=== PATIENT | female | born 1990 | race Caucasian/White ===

== ENCOUNTER → 2018-05-02 19:10 | Observation (INO) ==
[2018-05-02 19:29] LABS: Bilirubin,Urine Negative (Negative); Blood,Urine Negative (Negative); Clarity,Urine Turbid (Clear); Color,Urine Dark Yellow (Yellow); Glucose,Urine (UA) Normal (Normal); Ketones,Urine Negative (Negative); Leukocyte Esterase,Urine Negative (Negative); Nitrite,Urine Negative (Negative); PH,Urine 7.5 pH Units (5.0-8.0); Protein,Urine 30 mg/dL (Neg-Trace); Specific Gravity,Urine 1.025 (1.010-1.025); Urobilinogen,Urine Normal (Normal)
[2018-05-02 19:32] LABS: Bacteria,Urine None Seen per hpf (None-Few); Hyaline Casts,Urine None Seen per lpf (None-Few); Squamous Epithelial Cell,Urine Many per lpf (None-Few); WBC,Urine 0-3 per hpf (0-3)
[2018-05-02 19:39] LABS: Amphetamine Screen,Urine Negative ng/mL (Cutoff=1000); Barbiturate Screen,Urine Negative ng/mL (Cutoff=200); Benzodiazepines Screen,Urine Negative ng/mL (Cutoff=200); Cannabinoid Screen,Urine Negative ng/mL (Cutoff = 50); Cocaine Screen,Urine Negative ng/mL (Cutoff= 300); Opiate Screen,Urine Negative ng/mL (Cutoff=300); Phencyclidine Screen,Urine Negative ng/mL (Cutoff=25)
--- NOTE | 2018-05-02 20:02 | OB/GYN Progress Note ---
Date of Encounter: 05/02/18 Time of Encounter: 19:56 - Assessment and Plan (1) Vaginal discharge during in third trimester Current Visit: Yes Status: Acute Pelvic examination with frothy yellowish discharge. No pooling Send vaginosis panel Urinalysis (2) 33 weeks gestation of Current Visit: Yes Status: Acute Cervix closed and thick No painful contractions, vaginal bleeding, normal movement Category 1 tracing Expect patient to be discharged home once labs return Scheduled followup tomorrow with Dr. Knutson Subjective - Subjective Principal diagnosis: labor evaluation Interval history: Patient is a who presents at 33 and 4 weeks with chief complaint of leakage of fluid. History of two prior sections. Patient states around 1330 today she had a small amount of watery clear "gurgling" of fluid leakage when she coughed. She has had a small amount of leakage with exertion. Denies sexual intercourse in the past 48 hours. Denies vaginal bleeding. No burning with urination. Complains of some intermittent pelvic pressure, otherwise denies painful contractions.Normal movement. Went to [facility]. Nitrazine test was negative. Cervical examination was closed cervix and thick. She was advised to come here for monitoring as they do not have that in their ER. Denies fevers, chills, history of STI. Does have intermittent diaphragmatic pain for the past three days with laying down otherwise no chest pain or shortness of breath, nausea, or vomiting. Antepartum ROS: new complaints, loss of fluid, movement normal, no vaginal bleeding, no contractions Objective - Exam FHR: category 1 FHR comments: [id number] BPM reactive NST Auscultation: bilateral: normal Abdomen: Present: normal appearance, soft, gravid, other ( scar well healed, no tenderness). Absent: hernia, tenderness Uterus: Absent: tenderness Cervical dilation: closed Cervix effacement: thick Comments: Cardiac exam: RRR, S1 and S2, no murmur Speculum exam: frothy yellow discharge in vault, negative pooling, nitrazine negative at OSH - Labs Labs: Abnormal lab results Urine Clarity Turbid (Clear) A 05/02/18 19:00 Urine Protein 30 mg/dL (Neg-Trace) H 05/02/18 19:00
[2018-05-02 21:03] LABS: Candida DNA Not Detected (Not Detect); Gardnerella DNA DETECTED (Not Detect); Trichomonas DNA Not Detected (Not Detect)
== END | disposition home or self-care (01) ==
LOC: 1NENULAB
PROVIDERS: ADMIT Registered Nurse; ATTEND Registered Nurse

== ENCOUNTER 2018-05-16 12:55 | Observation (INO) ==
[2018-05-16 13:35] LABS: Bilirubin,Urine Small (Negative); Blood,Urine Negative (Negative); Color,Urine Dark Yellow (Yellow); Glucose,Urine (UA) Normal (Normal); Ketones,Urine 40 mg/dL (Negative); Leukocyte Esterase,Urine Small (Negative); Nitrite,Urine Positive (Negative); Protein,Urine 30 mg/dL (Neg-Trace); Specific Gravity,Urine 1.024 (1.010-1.025); Urobilinogen,Urine Normal (Normal)
[2018-05-16 13:37] LABS: Bacteria,Urine Few per hpf (None-Few); RBC,Urine 0-3 per hpf (0-3); Squamous Epithelial Cell,Urine Many per lpf (None-Few); WBC,Urine 15-30 per hpf (0-3)
[2018-05-16 13:40] LABS: Clarity,Urine Hazy (Clear)
[2018-05-16 13:52] LABS: Mucus,Urine Many (Few); Renal Epithelial Cells,Urine Few per hpf (None-Few); Transitional Epi Cells,Urine Few per hpf (None-Few)
[2018-05-16 13:53] LABS: Amphetamine Screen,Urine Negative ng/mL (Cutoff=1000); Barbiturate Screen,Urine Negative ng/mL (Cutoff=200); Benzodiazepines Screen,Urine Negative ng/mL (Cutoff=200); Cannabinoid Screen,Urine Negative ng/mL (Cutoff = 50); Cocaine Screen,Urine Negative ng/mL (Cutoff= 300); Opiate Screen,Urine Negative ng/mL (Cutoff=300); Phencyclidine Screen,Urine Negative ng/mL (Cutoff=25)
--- NOTE | 2018-05-16 14:35 | OB/GYN Progress Note ---
Date of Encounter: 05/16/18 Time of Encounter: 14:32 - Assessment and Plan (1) Decreased movement Current Visit: Yes Status: Acute NST reactive Qualifiers: Fetus number: single or unspecified fetus Trimester: third trimester Qualified Code(s): O36.8130 - Decreased movements, third trimester, not applicable or unspecified (2) 35 weeks gestation of Current Visit: Yes Status: Acute (3) Acute cystitis during in third trimester Current Visit: Yes Status: Acute Rx keflex. Pyelo precautions given. Discharge home with return precautions. Subjective - Subjective Interval history: 27 year-old presenting at 35w4d with c/o decreased movement. She reports she was ill with nausea, vomiting, and diarrhea yesterday and did not feel the baby move. Today she is feeling better but she has still not been able to feel the baby move. She reports her children were ill before her. No leaking, bleeding, or other complaints. This is complicated by 2 previous deliveries. Antepartum ROS: contractions (pt unsure if contractions), no loss of fluid, no vaginal bleeding, no movement normal Objective - Vital Signs Vital Signs: Intake and Output 05/15/18 05/16/18 05/16/18 23:59 07:59 15:59 Other: Weight 73.2 kg Patient Weight 05/16/18 23:59 Weight 73.2 kg - Exam FHR: category 1 FHR comments: 135 BPM reactive NST Abdomen: Present: soft, gravid Uterus: Absent: tenderness Cervical dilation: closed Cervix effacement: thick station: high - Labs Labs: Abnormal lab results Urine Clarity Hazy (Clear) A 05/16/18 13:11 Urine Protein 30 mg/dL (Neg-Trace) H 05/16/18 13:11 Urine Ketones 40 mg/dL (Negative) H 05/16/18 13:11 Urine Nitrite Positive (Negative) A 05/16/18 13:11 Urine Bilirubin Small (Negative) H 05/16/18 13:11 Ur Leukocyte Esterase Small (Negative) H 05/16/18 13:11 Urine Microscopic WBC 15-30 per hpf (0-3) H 05/16/18 13:11 Ur Squamous Epith Cells Many per lpf (None-Few) H 05/16/18 13:11 Urine Mucus Many (Few) H 05/16/18 13:11 Ur Culture Indicated? NO. (NO) A 05/16/18 13:11
== END 2018-05-16 14:50 | disposition home or self-care (01) ==
LOC: 1NENULAB
PROVIDERS: ADMIT Registered Nurse; ATTEND Registered Nurse

== ENCOUNTER 2018-05-28 17:42 | Inpatient (IN) ==
[2018-05-28 12:24] LABS: Amphetamine Screen,Urine Negative ng/mL (Cutoff=1000); Barbiturate Screen,Urine Negative ng/mL (Cutoff=200); Benzodiazepines Screen,Urine Negative ng/mL (Cutoff=200); Cannabinoid Screen,Urine Positive ng/mL (Cutoff = 50); Cocaine Screen,Urine Negative ng/mL (Cutoff= 300); Opiate Screen,Urine Negative ng/mL (Cutoff=300); Phencyclidine Screen,Urine Negative ng/mL (Cutoff=25)
[2018-05-28 14:21] LABS: Candida DNA Not Detected (Not Detect); Gardnerella DNA Not Detected (Not Detect); Trichomonas DNA Not Detected (Not Detect)
[~2018-05-28 17:42] MED LIST: CeFAZolin Premix DUPLEX 2,000 MG/50 ML BAG IVPB ONE; Famotidine 20 MG/2 ML VIAL IVP ONE; Metoclopramide 10 MG/2 ML VIAL IVP ONE; Oxytocin 20 units/ LR 1000 mL 20 UNIT/1,000 ML BAG IVC SCH; Ringers Solution, Lactated 1,000 ML IVC SCH
--- NOTE | 2018-05-28 17:59 | OB/GYN History & Physical ---
Date of Encounter: 05/28/18 Time of Encounter: 17:42 Assessment and Plan (1) 37 weeks gestation of Current visit: Yes Status: Acute Admitted for complaint of SROM yesterday. Patient arrived at 37 weeks 2 days today (2) NST (non-stress test) reactive Current visit: Yes Status: Acute FHR 135 bpm, moderate variability, +15x15 accels, no decels. Irregular contractions (3) Previous section Current visit: Yes Status: Acute Plan for repeat section due to SROM, 6-8 hours after last meal. (4) Spontaneous rupture of amniotic membranes Current visit: No Status: Acute Repeat section to be performed 6-8 hours after patient's last meal. History of Present Illness Chief complaint: SROM at 37w2d HPI: Ms. London is a 27 year old female at 37.2 weeks who presents with SROM yesterday at approximately 5 PM. Upon arrival, nitrazine to the perineum was negative, patient was 1 cm at that time. Patient reports positive movement and denies vaginal bleeding. Initial speculum exam revealed small amount of white vaginal discharge mixed with clear fluid. Fluid was visualized with patient cough. FERN sample was insufficient for viewing. Repeat FERN sample was repeated and found to be negative but due to physical exam on speculum exam, patient was kept for observation until Dr. Mccoy was able to evaluate her. Once Dr. Mccoy was able to evaluate patient with a speculum exam, he visualized fluid pooling in the speculum. At this time, it was decided to admit patient and move forward with a repeat section due to SROM. Patient had 2 prior sections. Blood Type A+ GBS neg HbSAG negative Rubella Immune Varicella Immune T. Pall Negative HIV Negative Past Med Surg Social Fam HX - Past Medical History Medical history: no medical history Additional medical history: KIDNEY STENT; adnoids and tonsilectomy Psychiatric history: no psych history - Past Surgical History Surgical History: , ureteral stent - Social History Smoking Status: Current every day smoker Packs per day: 3-5 cigs a day Smokeless Tobacco Status: No Alcohol use: none Drug use: marijuana Current living situation: Home - Independent Activity Level: Independent ambulation Recent Out of Country Travel Within the Last 8 Weeks: No Exposure or Possible Exposure to Illness During Travel: No - Family History Mother Living Status: Still Living Hx Family Cardiac Disorders: No Hx Family Respiratory Disorders: No Hx Family Cancer: Yes (cervical) Hx Family GI Disorders: No Hx Family Endocrine Disorder: No Hx Family Neuromuscular Disorders: No Hx Family Neurologic Disorders: No Hx Family HEENT Disorders: No Hx Family Autoimmune Disorders: No Maternal Grandmother Adopted: No Family Member Ethnicity: Non- Living Status: Still Living Hx Family Cardiac Disorders: No Hx Family Respiratory Disorders: No Hx Family Cancer: Yes (BREAST) Hx Family GI Disorders: No Hx Family Endocrine Disorder: No Hx Family Neuromuscular Disorders: No Hx Family Neurologic Disorders: No Hx Family HEENT Disorders: No Hx Family Autoimmune Disorders: No Obstetrical History - Pregnancies : 3 Para: 2 Term: 1 : 1 Ab's: 0 Livin Medications and Allergies No Known Home Drugs 05/28/18 [History] Allergy/AdvReac Type Severity Reaction Status Date / Time No Known Allergies Allergy Verified 05/16/18 13:18 Exam - Constitutional Constitutional: well developed, well nourished, no acute distress, average body habitus - Neck Neck exam: full ROM, normal inspection - Lungs Respiratory exam: CTAB - Cardiovascular Cardiovascular exam: RRR, +S1, +S2 - Breasts Breast: bilateral: normal - Abdomen Abdomen: Present: bowel sounds normal, gravid, non tender - Extremities Extremities exam: full ROM, normal capillary refill, normal inspection - Vulva Vulva: bilateral: normal - Vagina Vagina: Present: normal moisture - Cervix Dilation: 1 Effacement: 0 (Per RN exam) - Uterus Uterus exam: Present: normal size Results Abnormal lab results U Marijuana (THC) Screen Positive ng/mL (Cutoff = 50) H 05/28/18 11:51 All other labs normal. - VTE Reasons for not Prescribing Prophylaxis: Treatment not Indicated - Low risk for VTE
[2018-05-28 18:06] LABS: Basophils % 0.3 %; Eosinophils # 0.1 K/mcL (0.0-0.6); Eosinophils % 0.8 %; Hematocrit 30.2 % (35.3-44.9); Hemoglobin 9.9 g/dL (11.5-15.4); Immature Granulocytes % 0.7 % (0-4); Lymphocytes # 2.4 K/mcL (0.6-4.6); Lymphocytes % 23.1 %; Mean Corpuscular HGB Conc 32.8 g/dL (31.6-35.5); Mean Corpuscular Hemoglobin 28.6 pg (28.0-33.3); Mean Corpuscular Volume 87.3 fL (83.0-100.0); Mean Platelet Volume 9.3 fL (9.4-12.4); Monocytes # 0.6 K/mcL (0.0-1.3); Neutrophils # 7.1 K/mcL (1.6-8.9); Platelet Count 268 K/mcL (140-400); Red Blood Count 3.46 M/mcL (3.82-4.97); Red Cell Distribution Width 12.3 % (11.5-14.5); Segmented Neutrophils % 69.1 %
--- NOTE | 2018-05-28 18:29 | Anesthesia Evaluation PreOp ---
Date of Encounter: 05/28/18 Time of Encounter: 18:27 - Past History Cardiac History: Denies any Significant Hx Pulmonary History: Smoker (1/2 ppd), Pack/yr (6) FUSION JUNCTURE GRINDER History: Denies Any Significant HX Other Medical History: GERD Anesthesia History: No Prior Anesthetic Complications, Past Anesthesia (tonsil, ureteral stent, C/S x2), Problems (N/V) : Yes Test: Positive Alcohol Use: none Drug use: marijuana Medications and Allergies No Known Home Drugs 05/28/18 [History] Allergy/AdvReac Type Severity Reaction Status Date / Time No Known Allergies Allergy Verified 05/16/18 13:18 - Meds/Allergy Pre-op Review Medications Reviewed: Yes Allergies Reviewed: Yes Beta Blockers on Current Med List: No Anesthesia Results - Labs 05/28/18 17:44 Anesthesia Exam Height: 5'4" Weight: 76 kg NPO (# of Hours): 8 ate at noon Pain Scale: 0 Pain Scale Used: Numeric (1 - 10) - HEENT Pupil (Motor): Pupils equal Mallampati: II Teeth: Missing, Poor dentition Oral Opening: Greater than 3 - FUSION JUNCTURE GRINDER LOC: Oriented FUSION JUNCTURE GRINDER Motor: Normal RUE, Normal LUE, Normal RLE, Normal LLE, Normal Face FUSION JUNCTURE GRINDER Sensory: Normal: RUE, LUE, RLE, LLE, Face - Cardiac Rhythm: Regular Murmur: None - Pulmonary Breath Sounds: bilateral Clear Respiratory Effort: Symmetrical Anesthesia Assess/Plan ASA Score: 2 Level of consciousness: Cooperative Anesthetic Plan: Spinal (risks discussed questions answered, consented) Autologous Blood: No Monitoring Plan: Standard Monitors Recovery Plan: PACU
[2018-05-28] MEDS ORDERED: *HR* FentaNYL (PF) 100 MCG/2 ML VIAL IVP PRN (18:33)
[2018-05-28] MEDS ORDERED: *HR* Meperidine 25 MG/ML SYRINGE IVP PRN (18:33)
[2018-05-28] MEDS ORDERED: Acetaminophen IV 1,000 MG/100 ML INFUS..BTL IVPB ONE (18:33)
[2018-05-28] MEDS ORDERED: Ondansetron 4 MG/2 ML VIAL IVP PRN (18:33)
[2018-05-28] MEDS ORDERED: *HR* OxyCODONE Immed Rel 5 MG TABLET PO PRN (18:33)
[2018-05-28] MEDS ORDERED: *HR* Morphine Sulfate/PF 10 MG/10 ML AMPUL ONE (18:45)
[2018-05-28] MEDS ORDERED: Dexamethasone 4 MG/ML VIAL ONE (18:45)
[2018-05-28] MEDS ORDERED: Ondansetron 4 MG/2 ML VIAL ONE (18:45)
[2018-05-28] MEDS ORDERED: *HR* FentaNYL (PF) 100 MCG/2 ML VIAL ONE (18:45)
[2018-05-28] MEDS ORDERED: *HR* Oxytocin 10 UNIT/ML VIAL IM ONE (18:45)
[2018-05-28] MEDS ORDERED: Lidocaine -MPF 2% 5 ML VIAL ONE (18:50)
[2018-05-28] MEDS ORDERED: EPHEDrine 50 MG/ML VIAL ONE (20:54)
--- NOTE | 2018-05-28 21:02 | Anesthesia Procedures ---
Date of Encounter: 05/28/18 Time of Encounter: 21:00 Procedures: Anesthesia - Epidural/Spinal Patient ID/Chart reviewed: Yes Patient examined: Yes OB Eval: Gestational age: 37 OB Eval: : 3 OB Eval: Hx Para: 2 OB Eval: Dilated at (cm): 2 OB Eval: Contractions: Non-stressed pattern Consent Obtained: Yes Site Prep: Aseptic Technique, Sterile prep and drape, 0.5% Chlorhexidine/Alcohol Patient position: upright Interspace Used: L2-L3 Blood: No CSF: Yes Paresthesia: No Spinal Needle Gauge: 25 Spinal Dose: marcaine 12.5mg duramorph 0.2, fentanyl 10mcg Procedure: aseptic, lily well, effective Vitals + FHT's: 144/78 65 16 fht 133
--- NOTE | 2018-05-28 22:05 | OB/GYN Procedure Note ---
Section - Date of procedure: 05/28/18 Preop diagnosis: desires repeat , other (Premature rupture membranes at 37 weeks) Post-op diagnosis: same Procedure: section, repeat low transverse Surgeon: Kevin Mccoy Quantitated Blood Loss: 400 Was there an bankruptcy assistant present: No Tibco Developer: Vipul Antonio Anesthesia Type: Spinal Disposition: PACU - Infant (s) Infant A Delivery Date: 05/28/18 Delivery Time: 20:58 Presentation: vertex Gender: Female Gram Weight: 2.735 kg at 1 minute: 9 at 5 minutes: 9 Shoulder Dystocia: not encountered - Narrative Narrative: Patient's 27-year-old 3 para 2 female presents after rupture membranes last evening she presented today which time sterile speculum exam did show significant pulling without choanal cervix positive nitrazine have initially did not firm. She had eaten port we did observe patient for 6 hours at which time another sterile speculum exam revealed again definite leakage of fluid from the cervix and definite nitrazine and this time we did see ferning. We discussed with patient options decision was made to proceed with repeat section. She was aware operative risks and signed proper procedure. She had previously stated desire for tubal ligation however she with 2 this desire prior to surgery. Description procedure: Patient was taken operating room where scalp was used to make Pfannenstiel skin incision we did [place]: Took the incision down to the fascia which was nicked in the midline and fascial incision was extended bilaterally. Rectus muscles were divided in the midline fascial incision was extended superiorly and distally peritoneum was entered sharply and peritoneal incision was extended. Bladder flap was developed and lower uterine segment. Scalpel was used to make a transverse uterine incision which was bluntly extended bilaterally. Membranes were ruptured of clear fluid and was delivered from vertex presentation. Cord was clamped and cut and infant was taken to warmer for further resuscitative efforts. weight is 76 pounds with Apgars of 9 at 1 minute and 9 at 5 minutes. Placenta was delivered manually without difficulty and uterine cavity was massaged free of all residual tissue. Uterus was closed 0 Vicryl running lock stitch. Second imbricating layer was taken over the first to obtain hemostasis. Again irrigation was performed hemostasis was ensured. Fascia was closed 0 Vicryl running manner. Closed the fascia again irrigation was performed hemostasis was ensured. Skin edges reapproximated with 4-0 Vicryl. All sponge eminence counts are correct patient was taken recovery in good condition.
[2018-05-29] MEDS ORDERED: Simethicone 80 MG TAB.CHEW PO PRN (00:34)
[2018-05-29] MEDS ORDERED: Sennosides 8.6 MG TABLET PO PRN (00:34)
[2018-05-29] MEDS ORDERED: Metoclopramide 10 MG/2 ML VIAL IVP PRN (00:34)
[2018-05-29] MEDS ORDERED: Oxytocin 20 units/ LR 1000 mL 20 UNIT/1,000 ML BAG IVC SCH (00:34)
[2018-05-29] MEDS ORDERED: Ringers Solution, Lactated 1,000 ML IVC SCH (00:34)
[2018-05-29] MEDS ORDERED: Ondansetron 4 MG/2 ML VIAL IVP PRN (00:34)
--- NOTE | 2018-05-29 01:23 | Anesthesia Evaluation Post Op ---
Date of Encounter: 05/29/18 Time of Encounter: 01:22 - Lungs Lungs: Clear Ascult./Percussion - Airway Airway: Non-obstructed - Cardiovascular Regular Rate - Mental Status Mental Status: Alert & Oriented, Answers Appropriately - Pain Pain Scale: 2 Pain Scale used: Numeric (1 - 10) - Nausea Vomiting Nausea Vomiting: Not Present - Hydration Hydration: NPO Notes: 05/29/18 01:22 no anesthetic complications, to floor - Discharge PostOp Status: Transfer Patient to floor
[2018-05-29 07:15] LABS: Basophils % 0.1 %; Hematocrit 28.1 % (35.3-44.9); Hemoglobin 9.1 g/dL (11.5-15.4); Immature Granulocytes % 0.5 % (0-4); Lymphocytes # 1.6 K/mcL (0.6-4.6); Lymphocytes % 10.4 %; Mean Corpuscular HGB Conc 32.4 g/dL (31.6-35.5); Mean Corpuscular Hemoglobin 28.4 pg (28.0-33.3); Mean Corpuscular Volume 87.8 fL (83.0-100.0); Mean Platelet Volume 9.4 fL (9.4-12.4); Monocytes # 0.6 K/mcL (0.0-1.3); Monocytes % 4.2 %; Neutrophils # 12.8 K/mcL (1.6-8.9); Platelet Count 257 K/mcL (140-400); Red Cell Distribution Width 11.9 % (11.5-14.5); Segmented Neutrophils % 84.8 %
[2018-05-29] MEDS: *HR* OxyCODONE/APAP 5/325 TABLET PO PRN ×3 (08:40→20:42)
[2018-05-29] MEDS ORDERED: Prenatal Vit/FA 1 EACH TABLET PO SCH (09:00)
--- NOTE | 2018-05-29 09:15 | OB/GYN Progress Note ---
Date of Encounter: 05/29/18 Time of Encounter: 09:13 - Assessment and Plan (1) Status post repeat low transverse section Current Visit: Yes Status: Acute Meeting all day 1 milestones Continue routine pp care Anticipate discharge home tomorrow (2) anemia Current Visit: Yes Status: Acute Continue iron supplementation daily Subjective - Subjective Principal diagnosis: s/p RLTCS Interval history: Feeling well. Out of bed without dizziness. Some abdominal discomfort-using binder. Cramping minimal, using ibuprofen and Percocet. every 2- 3 hours. Some nipple soreness. Voiding without difficulty. Passing flatus, no BM yet. Tolerating regular diet. Patient reports: appetite normal, voiding normally, pain well controlled, ambulating normally : doing well, other ( issues - possible lip tie) Objective - Vital Signs Latest vital signs: Vital Signs Temp Pulse Resp BP Pulse Ox 05/29/18 07:57 97.8 F 50 16 122/62 98 05/29/18 03:05 67 16 122/76 05/29/18 02:25 97.6 F 66 16 121/79 98 05/29/18 01:00 97.3 F L 58 16 125/78 96 05/29/18 00:01 97.8 F 61 14 131/73 97 Intake and Output 05/28/18 05/29/18 05/29/18 23:59 07:59 15:59 Intake Total 1000 / 1000 0 / 0 Output Total 400 / 400 325 / 325 Balance 600 / 600 -325 / -325 Intake: Oral 0 / 0 Intake, Autotransfusion Amount 1000 / 1000 Output: Estimated Blood Loss 400 / 400 Catheter 325 / 325 - Exam Lungs: bilateral: normal Chest: Normal S1, Normal S2 Extremities: Present: normal, edema (pedal - non-pitting) Incision: Present: normal, dry, dressed Uterus: Present: normal, firm Fundal Height: 1 (below and midline) Comments: Breasts: Soft, nontender; nipples intact without erythema - Labs Labs: Laboratory Results - last 24 hr 05/28/18 05/28/18 05/28/18 11:51 13:00 17:44 WBC 10.3 RBC 3.46 L Hgb 9.9 L Hct 30.2 L MCV 87.3 MCH 28.6 MCHC 32.8 RDW 12.3 Plt Count 268 MPV 9.3 L Immature Gran % 0.7 Seg Neutrophils % 69.1 Lymphocytes % 23.1 Monocytes % 6.0 Eosinophils % 0.8 Basophils % 0.3 Neutrophils # 7.1 Lymphocytes # 2.4 Monocytes # 0.6 Eosinophils # 0.1 Basophils # 0.0 Urine Opiates Screen Negative Ur Barbiturates Screen Negative Ur Phencyclidine Scrn Negative Ur Amphetamines Screen Negative U Benzodiazepines Scrn Negative Urine Cocaine Screen Negative U Marijuana (THC) Screen Positive H Ur Drug Screen Interp See Below Maria Del Carmen species DNA Not Detected Gardnerella DNA Probe Not Detected Trichomonas DNA Probe Not Detected 05/29/18 06:55 WBC 15.1 H RBC 3.20 L Hgb 9.1 L Hct 28.1 L MCV 87.8 MCH 28.4 MCHC 32.4 RDW 11.9 Plt Count 257 MPV 9.4 Immature Gran % 0.5 Seg Neutrophils % 84.8 Lymphocytes % 10.4 Monocytes % 4.2 Eosinophils % 0.0 Basophils % 0.1 Neutrophils # 12.8 H Lymphocytes # 1.6 Monocytes # 0.6 Eosinophils # 0.0 Basophils # 0.0 Urine Opiates Screen Ur Barbiturates Screen Ur Phencyclidine Scrn Ur Amphetamines Screen U Benzodiazepines Scrn Urine Cocaine Screen U Marijuana (THC) Screen Ur Drug Screen Interp Maria Del Carmen species DNA Gardnerella DNA Probe Trichomonas DNA Probe
[2018-05-29] MEDS: Ibuprofen 600 MG TABLET PO PRN ×2 (12:02→18:20)
[2018-05-30] MEDS: *HR* OxyCODONE/APAP 5/325 TABLET PO PRN ×2 (02:19→07:38)
[2018-05-30] MEDS ORDERED: Lanolin 7 G OINT...G. TP PRN (02:47)
[2018-05-30] MEDS: Ibuprofen 600 MG TABLET PO PRN ×2 (05:41→11:29)
[2018-05-30 07:40] VITALS: BP 109/62
--- NOTE | 2018-05-30 09:38 | Discharge Summary ---
Date of Encounter: 05/30/18 Time of Encounter: 09:35 - Discharge Diagnosis (1) Breast feeding status of mother Priority: Secondary Status: Acute (2) anemia Priority: Secondary Status: Acute (3) Status post repeat low transverse section Priority: Primary Status: Acute Comments: Pt meeting post-op milestones. She desires discharge home today. - Discharge Medications Prescriptions: Ibuprofen [Motrin] 600 mg PO Q6HR PRN #30 tablet PRN Reason: Cramping OxyCODONE/APAP 5/325 [Percocet 5/325 MG] 1 each PO Q6HR PRN 7 Days #28 tablet PRN Reason: Moderate pain 4-6 Breast Pump [BREAST PUMP] 1 each .ROUTE AD #1 each Docusate [Colace] 100 mg PO BID #60 capsule Ferrous Sulfate 325 mg PO DAILY #30 tablet Home Medications: Breast Pump [BREAST PUMP] 1 each .ROUTE AD #1 each 05/30/18 [Rx] Docusate [Colace] 100 mg PO BID #60 capsule 05/30/18 [Rx] Ferrous Sulfate 325 mg PO DAILY #30 tablet 05/30/18 [Rx] Ibuprofen [Motrin] 600 mg PO Q6HR PRN #30 tablet 05/30/18 [Rx] Lanolin [Lansinoh] 1 appl TP TID PRN oint...g. 05/30/18 [Rx] OxyCODONE/APAP 5/325 [Percocet 5/325 MG] 1 each PO Q6HR PRN 7 Days #28 tablet 05/30/18 [Rx] Vit/FA 1 each PO DAILY tablet 05/30/18 [Rx] Simethicone [Gas-X] 80 mg PO TID PRN tab.chew 05/30/18 [Rx] Allergies/Adverse Reactions: Allergy/AdvReac Type Severity Reaction Status Date / Time No Known Allergies Allergy Verified 05/16/18 13:18 Data Procedures and tests throughout hospitalization: Laboratory Tests 05/28/18 05/28/18 05/28/18 11:51 13:00 17:44 WBC 10.3 RBC 3.46 L Hgb 9.9 L Hct 30.2 L MCV 87.3 MCH 28.6 MCHC 32.8 RDW 12.3 Plt Count 268 MPV 9.3 L Immature Gran % 0.7 Seg Neutrophils % 69.1 Lymphocytes % 23.1 Monocytes % 6.0 Eosinophils % 0.8 Basophils % 0.3 Neutrophils # 7.1 Lymphocytes # 2.4 Monocytes # 0.6 Eosinophils # 0.1 Basophils # 0.0 Urine Opiates Screen Negative Ur Barbiturates Screen Negative Ur Phencyclidine Scrn Negative Ur Amphetamines Screen Negative U Benzodiazepines Scrn Negative Urine Cocaine Screen Negative U Marijuana (THC) Screen Positive H Ur Drug Screen Interp See Below Maria Del Carmen species DNA Not Detected Gardnerella DNA Probe Not Detected Trichomonas DNA Probe Not Detected 05/29/18 06:55 WBC 15.1 H RBC 3.20 L Hgb 9.1 L Hct 28.1 L MCV 87.8 MCH 28.4 MCHC 32.4 RDW 11.9 Plt Count 257 MPV 9.4 Immature Gran % 0.5 Seg Neutrophils % 84.8 Lymphocytes % 10.4 Monocytes % 4.2 Eosinophils % 0.0 Basophils % 0.1 Neutrophils # 12.8 H Lymphocytes # 1.6 Monocytes # 0.6 Eosinophils # 0.0 Basophils # 0.0 Urine Opiates Screen Ur Barbiturates Screen Ur Phencyclidine Scrn Ur Amphetamines Screen U Benzodiazepines Scrn Urine Cocaine Screen U Marijuana (THC) Screen Ur Drug Screen Interp Maria Del Carmen species DNA Gardnerella DNA Probe Trichomonas DNA Probe Date of admission: 05/28/18 17:42 Primary care physician: PCP NONE Discharging clinician: Judi Dior Anticipated date of discharge: 05/30/18 - Patient Status Disposition: Home, Self-Care Condition: Good Functional capacity at discharge: independent ambulation Overall status at discharge: patient is progressing back to baseline - Discharge Instructions Follow Up With: NONE,PCP [Primary Care Provider] - Kevin Mccoy MD [Partnered Physician] - - Diet and Activity Activity: increase activity as tolerated Diet: regular diet Hospital Course Reason for admission: rupture of membranes Delivery: section Episiotomy: none Laceration: none Other procedures: none complications: none Discharge diagnosis: IUP at term delivered baby: female Hospital course: - Date of procedure: 05/28/18 Preop diagnosis: desires repeat , other (Premature rupture membranes at 37 weeks) Post-op diagnosis: same Procedure: section, repeat low transverse Surgeon: Kevin Mccoy Quantitated Blood Loss: 400 Was there an radiology physician assistant present: No Client Relations Associate: Vipul Antonoi Anesthesia Type: Spinal Disposition: PACU - Infant (s) Infant A Infant Delivery Date: 05/28/18 Delivery Time: 20:58 Presentation: vertex Gender: Female Gram Weight: 2.735 kg at 1 minute: 9 at 5 minutes: 9 Shoulder Dystocia: not encountered Time Attestation: Total time spent providing and/or coordinating discharge services: Time Spent: Less than 30 minutes - VTE Reasons for not Prescribing Prophylaxis: Treatment not Indicated - Low risk for VTE Documentation of Mechanical Device: Intermittent pneumatic compression device Exam - Constitutional Vitals: Temp Pulse Resp BP Pulse Ox 97.5 F L 55 16 109/62 97 05/30/18 07:39 05/30/18 07:39 05/30/18 07:39 05/30/18 07:39 05/29/18 20:00 General appearance IM: A&O X 3 - Respiratory Respiratory exam: Present: CTAB - Cardiovascular Cardiovascular exam IM: Present: RRR - GI/Abdominal GI/Abdominal exam IM: soft, no peritoneal signs Incision: intact Additional comments: no s/sx infection - Uterine Tone: Firm Uterus Position: 2 Fingers Below Umbilicus - Extremities Exam Extremities exam IM: Present: pedal edema (mild bilaterally) - Neurological Exam Neurological exam: normal gait, oriented X3 - Psychiatric Additional comments: reports good mood, history of homelessness, see SW prior to discharge. Safe spacing discussed but pt declines contraception.
== END 2018-05-30 13:30 | disposition home or self-care (01) | DRG 540 ==
LOC: 1NENULAB → 1NENUOBS 05-29 00:13
PROVIDERS: ADMIT Registered Nurse; ATTEND Registered Nurse